=== PATIENT | female | born 1995 | race Caucasian/White ===

== ENCOUNTER 2020-04-17 18:02 | Emergency (ER) | payer MEDICAID ==
[~2020-04-17] VITALS: Ht 175.3 cm; Wt 65.9 kg
[2020-04-17 18:33] VITALS: BP 142/85
[2020-04-17] MEDS ORDERED: CEPH250T PO (19:08)
[2020-04-17] MEDS ORDERED: LIDO20SO16 PO (19:08)
[2020-04-17] MEDS ORDERED: METH4TAB3 PO (19:08)
== END 2020-04-17 19:43 | disposition home or self-care (01) ==
LOC: ER 18:03
DX: J02.0 Streptococcal pharyngitis (principal); R60.9 Edema, unspecified; F17.200 Nicotine dependence, unspecified, uncomplicated; Z79.2 Long term (current) use of antibiotics
CPT/HCPCS: 87077; 87081; 87880; 99283